=== PATIENT | male | born 1975 | race Hispanic/Latino ===

== ENCOUNTER → 2018-03-08 | Outpatient (CLI) | payer OTHER ==
[~2018-03-08] MED LIST: CIPRO500 MG PO; CLINDAMYCIN 300MG 50 ML IV ONE; GENTAMICIN 120MG/NS 100ML 100 ML ONE
[2018-03-28 14:15] VITALS: BP 122/88
== END ==
LOC: RAD 05:00 → OR 03-09 06:47 → RAD 03-09 06:47 → EDSTATUS 03-09 09:00
PROVIDERS: ATTEND Urology
DX: Z01.810 Encounter for preprocedural cardiovascular examination (principal); R97.20 Elevated prostate specific antigen [PSA]; Z53.09 Procedure and treatment not carried out because of other contraindication
CPT/HCPCS: 93005; J1580

== ENCOUNTER → 2018-03-28 | Day surgery (SDC) | payer OTHER ==
[~2018-03-28] MED LIST changes: +FENTANYL CITRATE/PF 100MCG/2 ML INJ ONE; +LIDOCAINE HCL 2% LOCAL INJ 5 ML SDV VIAL INJ ONE; +MIDAZOLAM HCL 2 MG/2 ML VIAL ONE; +PROPOFOL IV EMULSION 10 MG/ML 20 ML VIAL ONE
--- NOTE | 2018-03-29 20:32 | Operative Report ---
DATE OF PROCEDURE: March 28, 2018 PREOPERATIVE DIAGNOSIS: PSA 10.3. POSTOPERATIVE DIAGNOSIS: PSA 10.3. PROCEDURES 1. Prostate ultrasound. 2. Ultrasound-guidance needle biopsy. 3. Needle biopsy of prostate. ANESTHESIA: General. ESTIMATED BLOOD LOSS: Minimal. COMPLICATIONS: None. INDICATIONS: Mr. Saenz is a 42-year-old male with a PSA of 10.3, repeated episodes. He and I had a long discussion about alternatives, risks and benefits including doing nothing and prostate biopsy. He voiced understanding of the options and alternatives, the risks, and the benefits and elected to proceed. PROCEDURE IN DETAIL: After informed consent was obtained, the patient had undergone his enema as well as prophylactic antibiotics. He was taken to the operating suite. He was placed in left lateral decubitus position and underwent anesthesia by the anesthesia services. 1. Prostate ultrasound. Transrectal ultrasound probe was inserted anally with proper lubrication and prostate ultrasound revealed some small calcifications in the mid prostate, which was shattering the volume exactly approximately 30 mL, normal-appearing seminal vesicles. 2. Ultrasound guidance. was present and I utilized the ultrasound probe to guide the ultrasound biopsies. 3. Needle biopsy of prostate. A 10-core approach needle biopsy of the prostate was performed. A single core at both bases, two cores in both bilateral apex to mid and passed off he table with minimal bleeding. The patient tolerated the procedure well and was transported to the recovery room in excellent condition with no untoward effects noted. Job#: [id number] AYAN cc:LILLIAN RUSSELL MD
== END | disposition home or self-care (01) ==
LOC: OR 12:06
PROVIDERS: ATTEND Urology
DX: R97.20 Elevated prostate specific antigen [PSA] (principal); N42.89 Other specified disorders of prostate; Z88.1 Allergy status to other antibiotic agents
CPT/HCPCS: 55700; 76872; 88305; J1580; J2001; J2250; J2704; 76942; 76998

== ENCOUNTER 2018-03-30 17:56 | Inpatient (IN) | payer OTHER ==
[~2018-03-30] VITALS: Ht 175.3 cm; Wt 92.2 kg
[2018-03-30] MEDS ORDERED: SODIUM CHLORIDE 0.9% 1000ML 1,000 ML IV SCH ×2 (19:00→20:41)
[2018-03-30] MEDS ORDERED: ACETAMINOPHEN 325 MG TAB PO ONE (19:00)
--- NOTE | 2018-03-30 19:16 | Diagnostic Imaging Report ---
EXAMINATION: PA and lateral views of the chest. COMPARISON: None CLINICAL HISTORY: Sepsis, infection DISCUSSION: Lines/tubes: None. Lungs: The lungs are well inflated and clear. There is no evidence of pneumonia or pulmonary edema. Pleura: There is no pleural effusion or pneumothorax. Heart and mediastinum: Cardiomediastinal silhouette is unremarkable. Pulmonary vasculature is normal. Bones and soft tissues: No acute bony abnormalities. IMPRESSION: No acute cardiopulmonary abnormalities. Signed by: Dr. Hal Meredith M.D. on 03/30/2018 7:13 PM
[2018-03-30 19:37] LABS: BASOPHILS % 0.2 % (0.0-1.0); HEMATOCRIT 49.3 % (38.2-49.6); HEMOGLOBIN 16.9 g/dL (14.0-18.0); LYMPHOCYTES # (AUTO) 0.6 (1.0-3.2); LYMPHOCYTES % 2.8 % (18.0-39.1); MEAN CORPUSCULAR HEMOGLOBIN 31.5 pg (28-32); MEAN CORPUSCULAR HGB CONC 34.3 g/dL (31-35); MONOCYTES # (AUTO) 1.3 (0.2-0.8); MONOCYTES % 6.3 % (4.4-11.3); NEUTROPHILS # (AUTO) 18.9 (2.1-6.9); NEUTROPHILS % 89.8 % (38.7-80.0); PLATELET COUNT 168 x10e3/uL (140-360); RED BLOOD COUNT 5.36 x10e6/uL (4.3-5.7); RED CELL DISTRIBUTION WIDTH 11.4 % (11.7-14.4)
[2018-03-30] MEDS ORDERED: VANCOMYCIN 1GM/NS 250 ML 250 ML IV ONE ×2 (19:51→20:45)
[2018-03-30] MEDS ORDERED: PIPER-TAZ 3.375 GM 50 ML IV ONE (19:51)
[2018-03-30 20:17] LABS: ALANINE AMINOTRANSFERASE 36 IU/L (0-55); ALBUMIN/GLOBULIN RATIO 1.1 (0.8-2.0); ALKALINE PHOSPHATASE 77 IU/L (40-150); ANION GAP 15.5 mmol/L (8-16); BLOOD UREA NITROGEN 12 mg/dL (7-26); BUN/CREATININE RATIO 11 (6-25); CALCIUM 9.9 mg/dL (8.4-10.2); CARBON DIOXIDE 22 mmol/L (22-29); CHLORIDE 101 mmol/L (98-107); CREATININE, SERUM 1.13 mg/dL (0.72-1.25); EST GLOMERULAR FILTRATION RATE > 60 ML/MIN (60-); GLUCOSE 135 mg/dL (74-118); POTASSIUM 3.5 mmol/L (3.5-5.1); SODIUM 135 mmol/L (136-145)
[2018-03-30] MEDS ORDERED: ONDANSETRON HCL INJ 2 MG/ML VIAL IV PRN (20:45)
[2018-03-30 20:49] LABS: BILIRUBIN,URINE NEGATIVE (NEGATIVE); CLARITY,URINE HAZY (CLEAR); COLOR,URINE YELLOW (YELLOW); LEUKOCYTE ESTERASE ,URINE 1+ (NEGATIVE); NITRITE,URINE NEGATIVE (NEGATIVE); PROTEIN,URINE DIPSTICK NEGATIVE (NEGATIVE); URINE UROBILINOGEN 0.2 mg/dL (0.2 - 1)
[2018-03-30 20:50] LABS: EPITHELIAL CELLS,URINE FEW /LPF; KETONES,URINE 2+ (NEGATIVE)
[2018-03-30 20:51] LABS: WBC,URINE (MAN) >50 /HPF (0-5)
[2018-03-30 20:52] LABS: RBC,URINE 21-50 /HPF (0-5)
[2018-03-30] MEDS ORDERED: PIPER-TAZ 3.375 GM 50 ML IV SCH (22:00)
[2018-03-30 22:46] VITALS: BP 113/49
--- OUTSIDE RECORDS SUMMARY | 2018-03-30 22:57 | XMS REPORT ---
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 Allergies, Adverse Reactions, Alerts This patient has no known allergies or adverse reactions. Medications This patient has no known medications. Results Test Description Test Time Test Comments Text Results Atomic Results Result Comments CHEST 2 VIEWS 2018-03-30 19:13:00 [place] [address] Patient Name: MIKE ZARAGOZA MR #: [id number] : 1975 Age/Sex: 42/M Req #: [id number] [facility] Physician: Ordered by: PATRIA ZURITA MD Report #: [id number] Location: ER Room/Bed: Procedure: [id number] DX/CHEST 2 VIEWS Exam Date: 03/30/18 Exam Time: 1850 REPORT STATUS: Signed EXAMINATION: PA and lateral views of the chest. COMP ARISON: None CLINICAL HISTORY: Sepsis, infection DISCUSSION: Lines/tubes: None. Lungs: The lungs are well inflated and clear. There is no evidence of pneumonia or pulmonary edema. Pleura: There is no pleural effusion or pneumothorax. Heart and mediastinum: Cardiomediastinal silhouette is unremarkable. Pulmonary vasculature is normal. Bones and soft tissues: No acute bony abnormalities. IMPRESSION: No acute cardiopulmonary abnormalities. Signed by: Dr. Eulalia Meredith M.D. on 03/30/2018 7:13 PM Dictated By: EULALIA MEREDITH MD 12 Transcribed By: YANI on 03/30/181912 COPY TO: PATRIA ZURITA MD
[2018-03-30 23:00] VITALS: BP 118/80
[2018-03-30 23:30] VITALS: BP 133/81
[2018-03-31] VITALS (22 sets, daily range): BP systolic 105–132; BP diastolic 69–81
[2018-03-31] MEDS ORDERED: ONDANSETRON HCL INJ 2 MG/ML VIAL IV PRN (00:15)
[2018-03-31] MEDS: SODIUM CHLORIDE 0.9% 1000ML 1,000 ML IV SCH ×4 (00:15→16:51)
[2018-03-31 00:48] LABS: BACTERIA,URINE FEW /HPF; BILIRUBIN,URINE NEGATIVE (NEGATIVE); CLARITY,URINE SL CLOUDY (CLEAR); COLOR,URINE YELLOW (YELLOW); EPITHELIAL CELLS,URINE FEW /LPF; KETONES,URINE TRACE (NEGATIVE); LEUKOCYTE ESTERASE ,URINE 1+ (NEGATIVE); NITRITE,URINE NEGATIVE (NEGATIVE); PROTEIN,URINE DIPSTICK NEGATIVE (NEGATIVE); URINE UROBILINOGEN 0.2 mg/dL (0.2 - 1); WBC,URINE (MAN) >50 /HPF (0-5)
[2018-03-31] MEDS ORDERED: SODIUM CHLORIDE 0.9% 1000ML 1,000 ML IV PRN (02:45)
[2018-03-31] MEDS ORDERED: PIPER-TAZ 3.375 GM 50 ML IV SCH (04:00)
[2018-03-31] MEDS: ACETAMINOPHEN 325 MG TAB PO PRN ×2 (07:21→11:20)
[2018-03-31 09:54] LABS: BASOPHILS % 0.2 % (0.0-1.0); HEMATOCRIT 42.2 % (38.2-49.6); HEMOGLOBIN 14.4 g/dL (14.0-18.0); LYMPHOCYTES # (AUTO) 0.7 (1.0-3.2); LYMPHOCYTES % 3.6 % (18.0-39.1); MEAN CORPUSCULAR HEMOGLOBIN 31.9 pg (28-32); MEAN CORPUSCULAR HGB CONC 34.1 g/dL (31-35); MEAN CORPUSCULAR VOLUME 93.6 fL (81-99); MONOCYTES # (AUTO) 0.9 (0.2-0.8); MONOCYTES % 4.8 % (4.4-11.3); NEUTROPHILS # (AUTO) 17.2 (2.1-6.9); NEUTROPHILS % 90.7 % (38.7-80.0); PLATELET COUNT 141 x10e3/uL (140-360); RED BLOOD COUNT 4.51 x10e6/uL (4.3-5.7); RED CELL DISTRIBUTION WIDTH 11.7 % (11.7-14.4)
[2018-03-31] MEDS ORDERED: HYDROCODONE/APAP 5MG-325MG TAB PO PRN (10:00)
[2018-03-31] MEDS ORDERED: MORPHINE SULFATE 2 MG/ML SYR IV PRN (10:00)
[2018-03-31] MEDS ORDERED: MEROPENEM 500MG 500 MG in SODIUM CHLORIDE 0.9% 50ML 50 ML IV SCH ×2 (10:00→16:00)
[2018-03-31 10:06] LABS: ANION GAP 11.8 mmol/L (8-16); BLOOD UREA NITROGEN 9 mg/dL (7-26); BUN/CREATININE RATIO 9 (6-25); CALCIUM 8.7 mg/dL (8.4-10.2); CARBON DIOXIDE 23 mmol/L (22-29); CHLORIDE 105 mmol/L (98-107); CREATININE, SERUM 0.96 mg/dL (0.72-1.25); EST GLOMERULAR FILTRATION RATE > 60 ML/MIN (60-); GLUCOSE 144 mg/dL (74-118); POTASSIUM 3.8 mmol/L (3.5-5.1); SODIUM 136 mmol/L (136-145)
[2018-03-31] MEDS ORDERED: MEROPENEM 500 MG VIAL IV ONE (10:30)
[2018-03-31] MEDS: IBUPROFEN 600 MG TAB PO PRN ×2 (10:34→23:33)
--- NOTE | 2018-03-31 12:19 | History and Physical ---
DATE OF SERVICE: March 31, 2018 CHIEF COMPLAINT: Fevers, not feeling well. HPI: This is a 42-year-old male with no past medical history of note, had recent elevation in PSA and underwent a prostate biopsy performed earlier in the week by urology, now presents to the ED with generalized weakness, not feeling well and fever, concerning for underlying sepsis. Patient also had elevated temperatures while in the hospital and in the ED. He also had some urinary retention requiring a Brock catheter to be placed. Denies any chest pain, palpitations, nausea, vomiting. Patient seen and evaluated at bedside on the medical floor, currently doing well with no other complaints. REVIEW OF SYSTEMS: Pertinent positives: Urinary retention, fever, not feeling well. Pertinent negatives: Denies any chest pain, palpitation, nausea, vomiting, diarrhea, dysuria, hematuria, urgency, frequency, lightheadedness, dizziness, abdominal pain, any shortness of breath, cough, congestion, or any other complaints. The rest of [id number] review of systems have been reviewed with the patient and is negative. ALLERGIES: . HOME MEDICATIONS: None. PAST MEDICAL HISTORY: Elevated PSA status post prostate biopsy earlier this week. PAST SURGICAL HISTORY: Prostate biopsy. FAMILY HISTORY: Hypertension and diabetes. SOCIAL HISTORY: No drugs. No alcohol. Does not smoke. Good social support. LAB FINDINGS: Show white count is 21, hemoglobin 16.9, hematocrit 39.8, platelets 168. Chemistry: Sodium 135, potassium 3.5, chloride 101, bicarb 23, anion gap of 15, BUN is 12, creatinine is 1.1, glucose is 135, lactic acid is 18 which is normal in this hospital. LFTs were normal. Total bilirubin is 3.9, calcium is 9.9, total protein is 7.8, albumin is 4. Urinalysis concerning for underlying UTI, very cloudy in nature. Blood cultures, 2 out of 2, gram-negative rods. Urine cultures are pending. IMAGING STUDIES: Chest x-ray was negative. PHYSICAL EXAMINATION VITAL SIGNS: Temperature is 101, T-max of 102.9, his pulse is 125, blood pressure is 126/78, pulse ox 96% on room air. GENERAL: Not in acute distress, alert and oriented x 3, cooperative on examination. HEENT: Head normocephalic, atraumatic. Eyes: Pupils are equal, round, and reactive to light bilaterally. Extraocular movements intact bilaterally. Throat: No evidence of any erythema or exudates in the posterior pharynx, has poor dentition. NECK: Supple with good range of motion. PULMONARY: Clear to auscultation bilaterally. No wheezing. No rales. No rhonchi. No crackles appreciated. CARDIOVASCULAR: Positive S1, S2. No murmurs, rubs, or gallops appreciated. ABDOMEN: Soft, nondistended, nontender to palpation. Bowel sounds present. MUSCULOSKELETAL: Strength is 5/5 throughout. No evidence of any muscle deficit on examination. No weakness appreciated. NEUROLOGIC: Cranial nerves II through XII are grossly intact. No evidence of any neurologic deficit on exam. SKIN: Intact and warm to touch. Good cap refill. PSYCHIATRIC: Normal affect and mood. EXTREMITIES: No edema. Good range of motion throughout. IMPRESSION 1. Sepsis with underlying leukocytosis and bacteremia. 2. Fever. 3. Status post recent prostate biopsy. 4. Urinary retention. 5. Sinus tachycardia. 6. Hypotension. PLAN: At this time, patient is on broad-spectrum IV antibiotics. Two out of 2 blood cultures grew gram-negative rods. We will discontinue IV vancomycin and Zosyn. Add IV Merrem for broad coverage. ID is consulted as well as urology to come and evaluate. He does have a Brock for urinary retention. He is currently not on any home medications at this time. We will put him on Lovenox for DVT prophylaxis. Get a.m. labs. He is otherwise doing well with no other issues. He is on a regular diet and IV fluids as well as pain control. Otherwise, we will continue the same plan of care. I spent more than 35 minutes of critical care time on this case. Job#: [id number] LPA
[2018-03-31] MEDS: ENOXAPARIN SOD INJ 40 MG/0.4 ML SYR SC SCH (16:51)
[2018-03-31] MEDS: MEROPENEM 500 MG VIAL IV SCH ×2 (16:51→22:40)
[2018-03-31] MEDS ORDERED: MEROPENEM 500 MG VIAL IV SCH (18:00)
--- NOTE | 2018-03-31 18:49 | Consultation ---
DATE OF CONSULTATION: REASON FOR CONSULTATION: Sepsis gram-negative. HISTORY OF PRESENT ILLNESS: This patient who is 42-year-old male with history of elevated PSA, history of biopsy performed earlier the week by urology, comes in with fever chills. The patient has started on IV antibiotic. Infectious disease was consulted. The patient is currently comfortable in bed. His blood cultures only showing gram-negative rods. His urine culture showing gram-negative rods. Infectious disease was consulted. PAST MEDICAL HISTORY: Elevated PSA, biopsy as mentioned above. ALLERGIES: NKA. SOCIAL HISTORY: Does not smoke, drug abuse, or alcohol abuse. FAMILY HISTORY: Hypertension. REVIEW OF SYSTEMS HEENT: Negative. PULMONARY: Negative. CARDIAC: Negative. : Negative. SKIN: There is no rash. PHYSICAL EXAMINATION GENERAL: Currently, alert and oriented. Does not seem to be in apparent distress. VITAL SIGNS: Stable, currently afebrile. HEENT: Does not appear icteric. NECK: Supple. CHEST: Clear. HEART: S1 and S2. ABDOMEN: Soft. Bowel sounds present. No tenderness. EXTREMITIES: No edema. SKIN: No rash. IMPRESSION: Gram-negative sepsis and bacteremia secondary to pyelonephritis with sepsis on admission. We put the patient on meropenem for the time being 500 mg q.6. Recheck CBC. Recheck Chem panel. Await the blood cultures. Await urine cultures to modify after the availability of the sensitivity of the bacteria. Job#: [id number] ELIZA
[2018-03-31] MEDS ORDERED: VANCOMYCIN 1GM/NS 250 ML 250 ML IV SCH ×2 (21:00)
[2018-04-01] VITALS (14 sets, daily range): BP systolic 98–138; BP diastolic 65–89
[2018-04-01] MEDS: SODIUM CHLORIDE 0.9% 1000ML 1,000 ML IV SCH ×2 (01:24→03:46)
[2018-04-01] MEDS: ACETAMINOPHEN 325 MG TAB PO PRN (05:00)
[2018-04-01] MEDS: MEROPENEM 500 MG VIAL IV SCH ×4 (05:08→23:22)
[2018-04-01 05:25] LABS: BASOPHILS % 0.1 % (0.0-1.0); EOSINOPHILS % 0.1 % (0.0-6.0); HEMATOCRIT 38.5 % (38.2-49.6); HEMOGLOBIN 13.1 g/dL (14.0-18.0); LYMPHOCYTES # (AUTO) 0.8 (1.0-3.2); LYMPHOCYTES % 5.5 % (18.0-39.1); MEAN CORPUSCULAR HEMOGLOBIN 31.8 pg (28-32); MEAN CORPUSCULAR VOLUME 93.4 fL (81-99); MONOCYTES % 7.2 % (4.4-11.3); NEUTROPHILS # (AUTO) 11.8 (2.1-6.9); NEUTROPHILS % 86.6 % (38.7-80.0); PLATELET COUNT 111 x10e3/uL (140-360); RED BLOOD COUNT 4.12 x10e6/uL (4.3-5.7); RED CELL DISTRIBUTION WIDTH 11.9 % (11.7-14.4)
[2018-04-01 05:38] LABS: ANION GAP 10.3 mmol/L (8-16); BLOOD UREA NITROGEN 8 mg/dL (7-26); BUN/CREATININE RATIO 10 (6-25); CALCIUM 8.8 mg/dL (8.4-10.2); CARBON DIOXIDE 22 mmol/L (22-29); CHLORIDE 109 mmol/L (98-107); CREATININE, SERUM 0.77 mg/dL (0.72-1.25); EST GLOMERULAR FILTRATION RATE > 60 ML/MIN (60-); GLUCOSE 124 mg/dL (74-118); POTASSIUM 4.3 mmol/L (3.5-5.1); SODIUM 137 mmol/L (136-145)
--- NOTE | 2018-04-01 10:21 | Progress Note ---
DATE: April 01, 2018 MEDICINE PROGRESS NOTE SUBJECTIVE: Patient is doing well today with no other complaints. His urine cultures are back, E. coli pansensitive. Blood cultures still pending. His white count is improving. He has been afebrile. He is tolerating diet well as well. LAB FINDINGS: Show white count of 13, hemoglobin 13, hematocrit is 38, and platelets of 111. Chemistry: Sodium 137, potassium 4.3, chloride 109, bicarb 22, anion gap 10, BUN is 8, creatinine is 0.77, glucose is 124, and calcium is 8.8. Urinalysis consistent with UTI. His blood cultures 2 out of 2, gram-negative bacilli. Urine culture is positive for E. coli pansensitive. PHYSICAL EXAMINATION VITAL SIGNS: Temperature is 99.5, his pulse is 105, respiratory rate is 18, blood pressure is 115/78, and pulse ox 94% on room air. GENERAL: Not in acute distress, alert and oriented x3. Cooperative on examination. HEENT: Head normocephalic, atraumatic. Eyes: Pupils equal, round, and reactive to light bilaterally. Extraocular movements are intact bilaterally. Throat: No evidence of any erythema or exudates in the posterior pharynx. Has poor dentition. NECK: Supple with good range of motion. PULMONARY: Clear to auscultation bilaterally. No wheezing, no rales, no rhonchi, no crackles appreciated. CARDIOVASCULAR: Positive S1 and S2. No murmurs, rubs, or gallops appreciated. ABDOMEN: Soft, nondistended, nontender to palpation. Bowel sounds present. MUSCULOSKELETAL: Strength is 5/5 throughout. No evidence of any muscle deficit on examination. No weakness appreciated. NEUROLOGICAL: Cranial nerves II through XII are grossly intact. No evidence of any neurological deficits on exam. SKIN: Intact. Warm to touch. Good cap refill. PSYCHIATRIC: Normal affect and mood. EXTREMITIES: No edema. Good range of motion throughout. IMPRESSION 1. Sepsis with leukocytosis and bacteremia. 2. Urinary tract infection. 3. Fever with leukocytosis. 4. Status post recent prostate biopsy. 5. Urinary retention. 6. Sinus tachycardia with underlying hypotension. PLAN: At this time, his blood cultures were positive for gram-negative bacilli. His urine culture is positive for gram-negative rods E. coli, pansensitive. ID is following and will rearrange IV antibiotics per ID. Urology has been consulted. Patient is to maintain with the Brock. Continue with Lovenox for DVT prophylaxis. Encourage oral hydration. Stop IV fluids. Encourage ambulation, up, out of bed. Pain control. Anti-nausea medications. Patient is improving daily. We will await final recommendations from the consultants. I spent more than 35 minutes of critical care time on this case. Currently, he is in IMU regarding constant checks on his blood pressure and critical management. Job#: [id number] ELIZA
[2018-04-01] MEDS: IBUPROFEN 600 MG TAB PO PRN (13:33)
[2018-04-01] MEDS: ENOXAPARIN SOD INJ 40 MG/0.4 ML SYR SC SCH (17:26)
[2018-04-02] VITALS (8 sets, daily range): BP systolic 116–126; BP diastolic 77–90
[2018-04-02] MEDS: ACETAMINOPHEN 325 MG TAB PO PRN (00:23)
[2018-04-02 05:08] LABS: BASOPHILS % 0.2 % (0.0-1.0); EOSINOPHILS # (AUTO) 0.1 (0.0-0.4); EOSINOPHILS % 1.1 % (0.0-6.0); LYMPHOCYTES # (AUTO) 1.5 (1.0-3.2); LYMPHOCYTES % 14.8 % (18.0-39.1); MEAN CORPUSCULAR HEMOGLOBIN 31.3 pg (28-32); MEAN CORPUSCULAR HGB CONC 34.2 g/dL (31-35); MEAN CORPUSCULAR VOLUME 91.6 fL (81-99); MONOCYTES # (AUTO) 0.9 (0.2-0.8); MONOCYTES % 9.1 % (4.4-11.3); NEUTROPHILS # (AUTO) 7.3 (2.1-6.9); NEUTROPHILS % 74.3 % (38.7-80.0); PLATELET COUNT 155 x10e3/uL (140-360); RED BLOOD COUNT 4.15 x10e6/uL (4.3-5.7)
[2018-04-02] MEDS: MEROPENEM 500 MG VIAL IV SCH ×4 (05:17→23:49)
[2018-04-02 05:42] LABS: ANION GAP 10.2 mmol/L (8-16); BLOOD UREA NITROGEN 7 mg/dL (7-26); BUN/CREATININE RATIO 10 (6-25); CARBON DIOXIDE 24 mmol/L (22-29); CHLORIDE 105 mmol/L (98-107); CREATININE, SERUM 0.72 mg/dL (0.72-1.25); EST GLOMERULAR FILTRATION RATE > 60 ML/MIN (60-); GLUCOSE 115 mg/dL (74-118); POTASSIUM 3.2 mmol/L (3.5-5.1); SODIUM 136 mmol/L (136-145)
[2018-04-02] MEDS: IBUPROFEN 600 MG TAB PO PRN (12:37)
[2018-04-02] MEDS: ENOXAPARIN SOD INJ 40 MG/0.4 ML SYR SC SCH (17:07)
[2018-04-02] MEDS: POTASSIUM CHLORIDE 20 MEQ TAB CR PO SCH (17:07)
--- NOTE | 2018-04-02 17:45 | Progress Note ---
DATE: April 02, 2018 MEDICINE PROGRESS NOTE SUBJECTIVE: The patient is doing well today with no complaints. The patient will stay here a bit longer as per infectious disease recommendations. He is tolerating a diet well. He reports feeling much better. OBJECTIVE VITALS: Temperature is 98, pulse 94, respiratory rate is 20, blood pressure is 118/77, pulse ox 93% on room air. GENERAL: Not in acute distress. Alert and oriented times 3. Cooperative on examination. HEENT: Head is normocephalic and atraumatic. Eyes: Pupils equal, round and reactive to light bilaterally. Extraocular movements intact bilaterally. NECK: Supple. Good range of motion. Throat with no evidence of any erythema or exudates in the posterior pharynx. Has poor dentition. PULMONARY: Clear to auscultation bilaterally. No wheezing. No rales. No rhonchi. No crackles appreciated. CARDIOVASCULAR: Positive S1 and S2. No murmurs, rubs or gallops appreciated. ABDOMEN: Soft, nondistended and nontender to palpation. Bowel sounds present. MUSCULOSKELETAL: Strength is 5/5 throughout. No evidence of any muscle deficit on examination. No weakness appreciated. NEUROLOGICAL: Cranial nerves II-XII are grossly intact. No evidence of any neurological deficits on exam. SKIN: Intact. Warm to touch. Good cap refill. PSYCHIATRIC: Normal affect and mood. EXTREMITIES: No edema. Good range of motion throughout. LAB FINDINGS: Show white count is 9.7, hemoglobin 13, hematocrit 38, and platelets of 155,000. Chemistry: Sodium 136, potassium is 3.2, chloride 105, bicarb 24, anion gap of 10, BUN is 7, creatinine is 0.72, glucose is 115. Calcium is 9. MICROBIOLOGY: Nothing new. IMAGING: Nothing new. IMPRESSION 1. Sepsis with leukocytosis and bacteremia: Now improving. 2. Urinary tract infection with Escherichia coli, pansensitive. 3. Fever with leukocytosis, improved. 4. Status post recent prostate biopsy. 5. Urinary retention: Now with a Brock. 6. Sinus tachycardia with underlying hypotension, resolved. PLAN: At this time, blood and urine cultures consistent with E. coli with pansensitivity. ID is managing the antibiotics. He would like to be discharged soon with oral antibiotics. In relation to his prostate, urology has been consulted and awaiting final recommendations. The patient is to maintain Brock according to urology's note. Will encourage oral hydration. Will stop the IV fluids. Continue with ambulation. Pain control. Likely discharge in the next 1-2 days once cleared by the consultants. Job#: [id number] SYLVIE
[2018-04-02] MEDS ORDERED: TAMSULOSIN HCL 0.4 MG CAP PO SCH (21:00)
[2018-04-03] VITALS: BP 118/82
[2018-04-03 04:56] LABS: BASOPHILS # (AUTO) 0.1 (0.0-0.1); BASOPHILS % 0.5 % (0.0-1.0); EOSINOPHILS # (AUTO) 0.2 (0.0-0.4); EOSINOPHILS % 1.8 % (0.0-6.0); HEMOGLOBIN 13.2 g/dL (14.0-18.0); LYMPHOCYTES # (AUTO) 1.9 (1.0-3.2); LYMPHOCYTES % 18.8 % (18.0-39.1); MEAN CORPUSCULAR HEMOGLOBIN 30.8 pg (28-32); MEAN CORPUSCULAR HGB CONC 33.8 g/dL (31-35); MEAN CORPUSCULAR VOLUME 90.9 fL (81-99); MONOCYTES % 9.4 % (4.4-11.3); NEUTROPHILS % 68.5 % (38.7-80.0); PLATELET COUNT 188 x10e3/uL (140-360); RED BLOOD COUNT 4.29 x10e6/uL (4.3-5.7); RED CELL DISTRIBUTION WIDTH 12.2 % (11.7-14.4)
[2018-04-03 05:21] LABS: ANION GAP 11.5 mmol/L (8-16); BLOOD UREA NITROGEN 10 mg/dL (7-26); BUN/CREATININE RATIO 14 (6-25); CALCIUM 9.1 mg/dL (8.4-10.2); CARBON DIOXIDE 24 mmol/L (22-29); CHLORIDE 104 mmol/L (98-107); EST GLOMERULAR FILTRATION RATE > 60 ML/MIN (60-); GLUCOSE 121 mg/dL (74-118); POTASSIUM 3.5 mmol/L (3.5-5.1); SODIUM 136 mmol/L (136-145)
[2018-04-03] MEDS: MEROPENEM 500 MG VIAL IV SCH (06:59)
[2018-04-03 07:30] VITALS: BP 113/74
[2018-04-03 07:38] VITALS: BP 113/74
[2018-04-03] MEDS: POTASSIUM CHLORIDE 20 MEQ TAB CR PO SCH (08:25)
[2018-04-03 11:30] VITALS: BP 113/77
[2018-04-03] MEDS ORDERED: CEFTRIAXONE SOD 1 GM VIAL IV SCH (12:00)
[2018-04-03] MEDS ORDERED: CIPRO500 MG PO (16:42)
[2018-04-03 17:50] VITALS: BP 125/79
--- NOTE | 2018-04-03 19:24 | Discharge Summary ---
FINAL DISCHARGE DIAGNOSES 1. Sepsis with underlying leukocytosis and bacteremia due to Escherichia coli. 2. Urinary tract infection pansensitive, discharged on oral Cipro. 3. Fever, leukocytosis, secondary to sepsis. 4. Status post recent prostate biopsy. 5. Urinary retention with Brock. 6. Sinus tachycardia with underlying hypotension, resolved. CONSULTANTS: ID and urology. VITAL SIGNS: Temperature is 98, pulse 90, respiratory rate is 20, blood pressure 113/77, pulse oximetry 96% on room air. LAB FINDINGS: Show white count 10, hemoglobin 13, hematocrit 39, platelets of 188,000. Chemistry: Sodium 136, potassium 3.6, chloride 104, bicarb 24, anion gap of 11, BUN is 10, creatinine 0.7, glucose is 121. LFTs were normal. Albumin was 4. Calcium is 9.1. Urinalysis consistent with UTI. MICROBIOLOGY: Showed E. coli, discharged on oral Cipro. IMAGING STUDIES: Chest x-ray: No acute cardiopulmonary abnormalities. HOSPITAL COURSE: A 42-year-old male who had a recent prostate biopsy. He comes in with underlying fever and treated for underlying sepsis. Urology and ID were consulted. Patient was on broad spectrum IV antibiotics. His urine culture was positive for E. coli. He also had positive E. Coli in the blood, underlying bacteremia. He was treated for sepsis with leukocytosis and fever. Patient's white count improved throughout the hospital course. He was back to normal. He was afebrile prior to being discharged home. Patient was cleared by both consultants for discharge with followup in urology office in the next 1 week. On the day of discharge, patient was tolerating diet well, doing well with no other issues. On the day of discharge vital signs stable, labs remained stable. The patient was seen and evaluated, and examined thoroughly on the day of discharge. No other complaints. The patient verbalizes understanding and agrees to plan of care. Follow up accordingly as an outpatient with the primary care physician in 1 week and infectious disease doctor in 2 weeks as well as urology in 1 week's time. DISCHARGE MEDICATIONS: The patient will be discharged home on oral Cipro, quantity 84. DISPOSITION: To home. CONDITION ON DISCHARGE: Stable. DIET: Heart Healthy. In the event of worsening symptoms, the patient was advised to come back to the ED for further evaluation. Discharge summary took greater than 35 minutes. JUSTO WILCOX MD Job#: [id number] SATURNINO
== END 2018-04-03 18:05 | disposition home or self-care (01) | DRG 872 ==
LOC: ER 17:56 → ERHOLD 22:54 → IMCU 23:00
PROVIDERS: ADMIT Internal Medicine; ATTEND Internal Medicine
DX: A41.51 Sepsis due to Escherichia coli [E. coli] (principal); N12 Tubulo-interstitial nephritis, not specified as acute or chronic; I10 Essential (primary) hypertension; R33.9 Retention of urine, unspecified; I95.9 Hypotension, unspecified; R00.0 Tachycardia, unspecified; Z82.49 Family history of ischemic heart disease and other diseases of the circulatory system
CPT/HCPCS: 36415; 71046; 80048; 80053; 81001; 83605; 85025; 87040; 87071; 87086; 87186; 87205; 99284; J0696; J1650; J2185; J2543; J3370; J7030